=== PATIENT | male | born 1955 | race African-American/Black ===

== ENCOUNTER 2018-02-15 09:06 | Day surgery (SDC) | payer OTHER ==
[2018-02-15] MEDS: BUPIVACAINE 0.25% (MPF) 30 ML INJ INJ
[~2018-02-15 09:06] MED LIST: CEFAZOLIN 1 GM INJ; LIDOCAINE 2% (SDV) 5 ML INJ; ONDANSETRON 4 MG INJ
[2018-02-15] MEDS: CEFAZOLIN 2 GM/50 ML (PMX) 50 ML IVPB (10:30)
[2018-02-15 12:54] LABS: INR 1.19; PROTIME 15.3 Sec (11.9-14.9); PT RATIO 1.2
[2018-02-15 12:58] LABS: PARTIAL THROMBOPLASTIN TIME 35.5 Sec (25.0-35.0)
[2018-02-15] MEDS ORDERED: BUPIVACAINE 0.25% (MPF) 30 ML INJ (13:24)
[2018-02-15] MEDS ORDERED: MIDAZOLAM 1 MG/ML 2 ML INJ (13:25)
[2018-02-15] MEDS ORDERED: FENTAnyl 50 MCG/ML VIAL (13:25)
[2018-02-15] MEDS ORDERED: PROPOFOL 20 ML (13:27)
[2018-02-15] MEDS ORDERED: HYDROmorphONE (0.2 MG/ML) 10ML SYG IV ×2 (14:29→14:30)
[2018-02-15] MEDS ORDERED: FENTAnyl 50 MCG/ML VIAL IV ×2 (14:30)
[2018-02-15] MEDS ORDERED: DIPHENHYDRAMINE 50 MG INJ IV (14:30)
[2018-02-15] MEDS ORDERED: MEPERIDINE 25 MG INJ IV (14:30)
[2018-02-15] MEDS ORDERED: KETOROLAC 30 MG INJ IV (14:30)
[2018-02-15] MEDS ORDERED: hydrALAzine 20 MG INJ IV (14:30)
[2018-02-15] MEDS ORDERED: ONDANSETRON 4 MG INJ IV (14:30)
[2018-02-15] MEDS ORDERED: LABETALOL HCL 20MG INJ IV (14:30)
[2018-02-15] MEDS: HYDROmorphONE (0.2 MG/ML) 10ML SYG IV ×2 (14:33→14:43)
== END 2018-02-15 16:20 | disposition home or self-care (01) ==
LOC: SDS 09:06
DX: N43.3 Hydrocele, unspecified (principal); I50.9 Heart failure, unspecified; Z87.891 Personal history of nicotine dependence; I73.9 Peripheral vascular disease, unspecified
CPT/HCPCS: 55500; 85610; 85730; 88304